=== PATIENT | male | born 1960 | race Caucasian/White ===

== ENCOUNTER 2021-11-18 06:17 | Emergency (ER) | payer MEDICAID ==
[~2021-11-18] VITALS: Ht 185.4 cm; Wt 84.0 kg
[2021-11-18 08:52] LABS: WHITE BLOOD COUNT 4.1 X10'3 (4.5-11.0)
[2021-11-18 08:54] LABS: HEMATOCRIT 34.1 % (42.0-52.0); HEMOGLOBIN 11.6 g/dl (14.0-17.9); MEAN CORPUSCULAR HEMOGLOBIN 34.5 PG (27.0-31.0); MEAN CORPUSCULAR HGB CONC 34.2 g/dL (33.0-36.5); MEAN CORPUSCULAR VOLUME 100.9 FL (78-98); MEAN PLATELET VOLUME 7.2 FL (7.4-10.4); PLATELET COUNT 151 X10'3 (140-440); RED BLOOD COUNT 3.38 X10'6 (4.70-6.10); RED CELL DISTRIBUTION WIDTH 14.2 % (11.5-14.5)
[2021-11-18 09:09] LABS: ALANINE AMINOTRANSFERASE 25 U/L (12-78); ALBUMIN 2.2 G/DL (3.4-5.0); ALBUMIN/GLOBULIN RATIO 0.5 (1.1-1.5); ALKALINE PHOSPHATASE 203 IU/L (46-116); ANION GAP 9 (8-16); ASPARTATE AMINO TRANSFERASE 49 U/L (10-37); BILIRUBIN,TOTAL 0.8 MG/DL (0.1-1.0); BLOOD UREA NITROGEN 17 MG/DL (7-18); BUN/CREATININE RATIO 14.2 (5.4-32.0); CHLORIDE 106 MMOL/L (99-107); ETHANOL < 0.010 GM/DL (0.0-0.010); GLUCOSE 104 MG/DL (70-104); MAGNESIUM 1.8 MG/DL (1.5-2.4); POTASSIUM 3.5 MMOL/L (3.5-5.1); SODIUM 135 MMOL/L (135-145); TOTAL CARBON DIOXIDE 19.7 MMOL/L (24-32); TOTAL PROTEIN 6.9 G/DL (6.4-8.2); eGFR 62 ML/MIN
[2021-11-18 09:12] LABS: APTT 31 SECONDS (22-32)
[2021-11-18 09:19] LABS: CALCIUM 8.3 MG/DL (8.5-10.1)
[2021-11-18 09:20] LABS: LIPASE < 50 U/L (73-393)
[2021-11-18 09:43] LABS: ANISOCYTOSIS FEW; PLATELET ESTIMATE NORMAL; TOTAL CELLS COUNTED 100
[2021-11-18 11:06] LABS: CLARITY,URINE CLOUDY (Clear); COLOR,URINE YELLOW (Yellow); GLUCOSE, URINE NEGATIVE (Neg); KETONES,URINE NEGATIVE (Neg); LEUKOCYTE ESTERASE ,URINE NEGATIVE (Neg); NITRITES, URINE NEGATIVE (Neg); OCCULT BLOOD,URINE NEGATIVE (Neg); PROTEIN,URINE TRACE mg/dl (Neg); UROBILINOGEN,URINE 0.2 E.U/dL (0.2-1.0)
[2021-11-18 11:12] LABS: URINE AMPHETAMINE SCREEN NEGATIVE (Neg); URINE BARBITUATE SCREEN NEGATIVE (Neg); URINE BENZODIAZEPINES SCREEN NEGATIVE (Neg); URINE CANNABINOID SCREEN NEGATIVE (Neg); URINE COCAINE SCREEN NEGATIVE (Neg); URINE METHADONE SCREEN NEGATIVE (Neg); URINE OPIATE SCREEN POSITIVE (Neg); URINE PHENCYCLIDINE SCREEN NEGATIVE (Neg)
[2021-11-18 11:21] LABS: UA COLLECTION TYPE CLN CATCH MIDSTREAM
[2021-11-18 11:26] LABS: CAL OXALATE CRYSTALS 4+ /HPF (NEGATIVE)
[2021-11-18 11:28] LABS: SQUAMOUS EPITHELIAL CELL,UR FEW /LPF (FEW); WBC,URINE 0-4 /HPF (0-4)
[2021-11-18 11:29] LABS: BACTERIA,URINE FEW /HPF (Neg); RBC,URINE 0-2 /HPF (0-2)
[2021-11-18] MEDS ORDERED: iohexol 300mg/ml 100ml inj. ONE (11:55)
[2021-11-18] MEDS ORDERED: LIDOcaine 1% W/epiNEPHrine 1:200,000 10ml vial IJ ONE (14:50)
[2021-11-18] MEDS ORDERED: morphine 4 MG/ML inj SYRINge IV ONE ×2 (15:50→16:45)
[2021-11-18] MEDS ORDERED: albumin (human) 25% 100 ML IV solution IV ONE (16:10)
[2021-11-18] MEDS ORDERED: SPIR25TA5 PO (16:17)
[2021-11-18] MEDS ORDERED: HYDR-3965 PO (16:22)
[2021-11-18 18:18] VITALS: BP 94/67
[2021-11-19 10:23] LABS: HBSAG SCREEN Negative (Negative); HEP A AB, IGM Negative (Negative); HEPATITIS C ANTIBODY <0.1 s/co ratio (0.0-0.9)
== END 2021-11-18 18:20 | disposition home or self-care (01) ==
LOC: ER 06:19
DX: K74.60 Unspecified cirrhosis of liver (principal); R18.8 Other ascites; F17.200 Nicotine dependence, unspecified, uncomplicated; Z72.89 Other problems related to lifestyle; Z79.899 Other long term (current) drug therapy
CPT/HCPCS: 36415; 49083; 74177; 80053; 80074; 80305; 80320; 81001; 82140; 83690; 83735; 85007; 85025; 85610; 85730; 96365; 96375; 96376; 99285; J2270; P9047; Q9967

== ENCOUNTER 2021-11-26 08:02 | Emergency (ER) | payer MEDICAID ==
[~2021-11-26] VITALS: Ht 188 cm; Wt 84.0 kg
[~2021-11-26 08:02] MED LIST: HYDR-3965 PO; SPIR25TA5 PO
[2021-11-26] MEDS ORDERED: morphine 4 MG/ML inj SYRINge IV ONE ×2 (09:10→10:40)
[2021-11-26 09:17] LABS: BASOPHILS % (AUTO) 1.3 % (0-1); EOSINOPHILS # (AUTO) 0.1 X10'3 (0-0.9); EOSINOPHILS % (AUTO) 3.4 % (0-6); HEMATOCRIT 30.4 % (42.0-52.0); HEMOGLOBIN 10.5 g/dl (14.0-17.9); LYMPHOCYTES # (AUTO) 0.9 X10'3 (1.1-4.8); LYMPHOCYTES % (AUTO) 23.7 % (21-51); MEAN CORPUSCULAR HEMOGLOBIN 34.3 PG (27.0-31.0); MEAN CORPUSCULAR HGB CONC 34.4 g/dL (33.0-36.5); MEAN CORPUSCULAR VOLUME 99.6 FL (78-98); MEAN PLATELET VOLUME 7.6 FL (7.4-10.4); MONOCYTES # (AUTO) 0.5 X10'3 (0-0.9); MONOCYTES % (AUTO) 12.3 % (2-12); NEUTROPHILS # (AUTO) 2.3 X10'3 (1.8-7.7); NEUTROPHILS % (AUTO) 59.3 % (42-75); PLATELET COUNT 108 X10'3 (140-440); RED BLOOD COUNT 3.05 X10'6 (4.70-6.10); RED CELL DISTRIBUTION WIDTH 14.1 % (11.5-14.5); WHITE BLOOD COUNT 3.9 X10'3 (4.5-11.0)
[2021-11-26 09:18] LABS: CLARITY,URINE CLEAR (Clear); COLOR,URINE YELLOW (Yellow); GLUCOSE, URINE NEGATIVE (Neg); KETONES,URINE NEGATIVE (Neg); LEUKOCYTE ESTERASE ,URINE NEGATIVE (Neg); NITRITES, URINE NEGATIVE (Neg); OCCULT BLOOD,URINE NEGATIVE (Neg); PROTEIN,URINE NEGATIVE (Neg); UROBILINOGEN,URINE 0.2 E.U/dL (0.2-1.0)
[2021-11-26 09:22] LABS: UA COLLECTION TYPE CLN CATCH MIDSTREAM
[2021-11-26 09:35] LABS: POTASSIUM 3.6 MMOL/L (3.5-5.1); SODIUM 139 MMOL/L (135-145)
[2021-11-26 09:36] LABS: ALANINE AMINOTRANSFERASE 21 U/L (12-78); ALBUMIN 2.1 G/DL (3.4-5.0); ALBUMIN/GLOBULIN RATIO 0.5 (1.1-1.5); ALKALINE PHOSPHATASE 181 IU/L (46-116); ANION GAP 9 (8-16); ASPARTATE AMINO TRANSFERASE 39 U/L (10-37); BILIRUBIN,TOTAL 0.6 MG/DL (0.1-1.0); BLOOD UREA NITROGEN 22 MG/DL (7-18); BUN/CREATININE RATIO 16.1 (5.4-32.0); CALCIUM 7.8 MG/DL (8.5-10.1); CHLORIDE 108 MMOL/L (99-107); CREATININE 1.37 MG/DL (0.60-1.10); GLUCOSE 114 MG/DL (70-104); LIPASE < 50 U/L (73-393); TOTAL CARBON DIOXIDE 22.4 MMOL/L (24-32); TOTAL PROTEIN 6.4 G/DL (6.4-8.2); eGFR 53 ML/MIN
--- NOTE | 2021-11-26 09:45 | NUR ---
provider at bedside.
--- NOTE | 2021-11-26 10:36 | NUR ---
paracentesis completed. three liters of fluid removed from pt, catheter discontinued fully intact. pt tolerated procedure well.
[2021-11-26 10:39] VITALS: BP 113/79
[2021-11-26] MEDS ORDERED: FURO-150 PO ×2 (10:43)
[2021-11-26] MEDS ORDERED: HYDR-3965 PO ×2 (10:43)
[2021-11-26] MEDS ORDERED: SPIR25TA PO ×2 (10:43)
[2021-11-26] MEDS ORDERED: POTA10CA44 PO ×2 (10:43)
--- NOTE | 2021-11-26 10:54 | NUR ---
PER PT, SISTER WILL PICK HIM UP. INSTRUCTED PT TO NOT DRIVE S/P MORPHINE ADMIN. VERBALIZED UNDERSTANDING.
== END 2021-11-26 10:54 | disposition home or self-care (01) ==
LOC: ER 08:03
DX: K70.31 Alcoholic cirrhosis of liver with ascites (principal); Z72.89 Other problems related to lifestyle; Z79.899 Other long term (current) drug therapy
CPT/HCPCS: 36415; 49082; 80053; 81003; 83690; 85025; 85610; 96374; 96376; 99285; J2270; 49083; 76705; 96375; 99284

== ENCOUNTER 2021-12-02 07:30 | Day surgery (SDC) | payer MEDICAID ==
[~2021-12-02] VITALS: Ht 188 cm; Wt 80.3 kg
[~2021-12-02 07:30] MED LIST changes: +FURO-150 PO; +LIDOcaine 1% 30ml preserv. free vial SQ STA; +POTA10CA44 PO; +SPIR25TA PO
[2021-12-02 07:41] VITALS: BP 103/76
[2021-12-02] MEDS ORDERED: albumin 25% 100mL bottle x 1 IV PRN (07:55)
[2021-12-02] MEDS ORDERED: FURO40TA4 PO (08:00)
[2021-12-02] MEDS ORDERED: POTA-192 PO (08:01)
[2021-12-02] MEDS ORDERED: SPIR25TA5 PO (08:02)
[2021-12-02 08:15] VITALS: BP 108/73
[2021-12-02 08:30] VITALS: BP 116/77
[2021-12-02 08:45] VITALS: BP 104/76
[2021-12-02 08:50] VITALS: BP 106/74
[2021-12-02 09:00] VITALS: BP 104/71
== END 2021-12-02 09:00 | disposition home or self-care (01) ==
LOC: SSTAY O 07:30
PROVIDERS: ATTEND Preventive Medicine Aerospace Medicine
DX: K70.31 Alcoholic cirrhosis of liver with ascites (principal); F17.210 Nicotine dependence, cigarettes, uncomplicated; Z98.890 Other specified postprocedural states; Z79.899 Other long term (current) drug therapy
CPT/HCPCS: 49083; J3490

== ENCOUNTER 2021-12-08 08:04 | Emergency (ER) | payer MEDICAID ==
[~2021-12-08] VITALS: Ht 188 cm; Wt 84.1 kg
[~2021-12-08 08:04] MED LIST changes: -FURO-150 PO; +FURO40TA4 PO; -HYDR-3965 PO; -LIDOcaine 1% 30ml preserv. free vial SQ STA; +POTA-192 PO; -POTA10CA44 PO; -SPIR25TA PO
[2021-12-08] MEDS ORDERED: LIDOcaine 1% w/EPI 1:100,000 30ml vial (MDV) ONE (09:00)
[2021-12-08] MEDS ORDERED: albumin (human) 25% 100 ML IV solution IV ONE (10:15)
[2021-12-08 11:40] VITALS: BP 110/72
== END 2021-12-08 11:40 | disposition home or self-care (01) ==
LOC: ER 08:04
DX: R18.8 Other ascites (principal); R14.0 Abdominal distension (gaseous); Z72.89 Other problems related to lifestyle; Z88.8 Allergy status to other drugs, medicaments and biological substances
CPT/HCPCS: 49083; 96365; 99285; J3490; P9047

== ENCOUNTER 2021-12-13 10:13 | Emergency (ER) | payer MEDICAID ==
[~2021-12-13] VITALS: Ht 188 cm; Wt 84.1 kg
[2021-12-13] MEDS ORDERED: ondansetron 4mg rapidly disintigrating tab PO ONE (14:40)
[2021-12-13] MEDS ORDERED: oxyCODONE IR 5mg (immed. release) tablet PO ONE (14:40)
[2021-12-13] MEDS ORDERED: OXYC-658 PO (14:44)
[2021-12-13 15:15] VITALS: BP 115/79
== END 2021-12-13 15:17 | disposition home or self-care (01) ==
LOC: ER 10:14
DX: T85.638A Leakage of other specified internal prosthetic devices, implants and grafts, initial encounter (principal); R18.8 Other ascites; Z72.89 Other problems related to lifestyle; Z79.899 Other long term (current) drug therapy; Y84.4 Aspiration of fluid as the cause of abnormal reaction of the patient, or of later complication, without mention of misadventure at the time of the procedure; Y92.89 Other specified places as the place of occurrence of the external cause
CPT/HCPCS: 99284

== ENCOUNTER 2021-12-17 07:38 | Day surgery (SDC) | payer MEDICAID ==
[~2021-12-17] VITALS: Ht 188 cm; Wt 79.9 kg
[~2021-12-17 07:38] MED LIST changes: +LIDOcaine 1% 30ml preserv. free vial IJ STA; +LIDOcaine 1%/PF 5ML 10 MG/ML VIAL IJ ONE; +OXYC-658 PO
[2021-12-17 08:45] VITALS: BP 107/71
[2021-12-17] MEDS ORDERED: albumin 25% 100mL bottle x 1 IV PRN (09:00)
[2021-12-17 09:05] VITALS: BP 109/76
[2021-12-17 09:20] VITALS: BP 119/78
[2021-12-17 09:35] VITALS: BP 106/71
[2021-12-17 09:45] VITALS: BP 105/72
[2021-12-17 10:00] VITALS: BP 111/60
== END 2021-12-17 10:00 | disposition home or self-care (01) ==
LOC: SSTAY O 07:38
PROVIDERS: ATTEND Preventive Medicine Aerospace Medicine
DX: K70.31 Alcoholic cirrhosis of liver with ascites (principal); F17.210 Nicotine dependence, cigarettes, uncomplicated; Z98.890 Other specified postprocedural states; Z72.89 Other problems related to lifestyle
CPT/HCPCS: 49083; J3490

== ENCOUNTER 2022-03-14 12:37 | Emergency (ER) | payer MEDICAID ==
[~2022-03-14] VITALS: Ht 185.4 cm; Wt 79.5 kg
[~2022-03-14 12:37] MED LIST changes: -LIDOcaine 1% 30ml preserv. free vial IJ STA; -LIDOcaine 1%/PF 5ML 10 MG/ML VIAL IJ ONE; -OXYC-658 PO
[2022-03-14] MEDS ORDERED: levetiracetam inj 1,000 MG in normal saline 100ml IV soln 90 ML IV STA (14:57)
[2022-03-14] MEDS ORDERED: normal saline 1000ML IV soln IVB ONE (15:00)
[2022-03-14] MEDS ORDERED: levetiracetam inj 1,000 MG in normal saline 100ml IV soln 100 ML IV ONE (15:30)
[2022-03-14 15:32] LABS: BASOPHILS % (AUTO) 1.2 % (0-1); EOSINOPHILS % (AUTO) 0.9 % (0-6); HEMATOCRIT 30.8 % (42.0-52.0); HEMOGLOBIN 10.3 g/dl (14.0-17.9); LYMPHOCYTES # (AUTO) 0.7 X10'3 (1.1-4.8); MEAN CORPUSCULAR HEMOGLOBIN 30.7 PG (27.0-31.0); MEAN CORPUSCULAR HGB CONC 33.5 g/dL (33.0-36.5); MEAN CORPUSCULAR VOLUME 91.8 FL (78-98); MEAN PLATELET VOLUME 7.4 FL (7.4-10.4); MONOCYTES # (AUTO) 0.4 X10'3 (0-0.9); MONOCYTES % (AUTO) 11.4 % (2-12); NEUTROPHILS # (AUTO) 2.4 X10'3 (1.8-7.7); NEUTROPHILS % (AUTO) 67.5 % (42-75); PLATELET COUNT 152 X10'3 (140-440); RED BLOOD COUNT 3.35 X10'6 (4.70-6.10); RED CELL DISTRIBUTION WIDTH 15.9 % (11.5-14.5); WHITE BLOOD COUNT 3.5 X10'3 (4.5-11.0)
[2022-03-14 15:51] LABS: ALANINE AMINOTRANSFERASE 52 U/L (12-78); ALBUMIN 2.5 G/DL (3.4-5.0); ALBUMIN/GLOBULIN RATIO 0.5 (1.1-1.5); ALKALINE PHOSPHATASE 224 IU/L (46-116); ANION GAP 7 (8-16); ASPARTATE AMINO TRANSFERASE 83 U/L (10-37); BILIRUBIN,TOTAL 0.8 MG/DL (0.1-1.0); BLOOD UREA NITROGEN 19 MG/DL (7-18); BUN/CREATININE RATIO 17.4 (5.4-32.0); CALCIUM 8.1 MG/DL (8.5-10.1); CHLORIDE 102 MMOL/L (99-107); CREATININE 1.09 MG/DL (0.60-1.10); ETHANOL < 0.010 GM/DL (0.0-0.010); GLUCOSE 101 MG/DL (70-104); POTASSIUM 3.6 MMOL/L (3.5-5.1); SODIUM 131 MMOL/L (135-145); TOTAL CARBON DIOXIDE 22.2 MMOL/L (24-32); TOTAL PROTEIN 7.2 G/DL (6.4-8.2); eGFR 69 ML/MIN
[2022-03-14 16:27] LABS: CLARITY,URINE CLEAR (Clear); COLOR,URINE YELLOW (Yellow); GLUCOSE, URINE NEGATIVE (Neg); KETONES,URINE NEGATIVE (Neg); LEUKOCYTE ESTERASE ,URINE NEGATIVE (Neg); NITRITES, URINE NEGATIVE (Neg); OCCULT BLOOD,URINE NEGATIVE (Neg); PROTEIN,URINE NEGATIVE (Neg); UROBILINOGEN,URINE 0.2 E.U/dL (0.2-1.0)
[2022-03-14 16:36] LABS: UA COLLECTION TYPE URINAL
[2022-03-14 17:05] LABS: URINE AMPHETAMINE SCREEN NEGATIVE (Neg); URINE BARBITUATE SCREEN NEGATIVE (Neg); URINE BENZODIAZEPINES SCREEN NEGATIVE (Neg); URINE CANNABINOID SCREEN NEGATIVE (Neg); URINE COCAINE SCREEN NEGATIVE (Neg); URINE METHADONE SCREEN NEGATIVE (Neg); URINE OPIATE SCREEN NEGATIVE (Neg); URINE PHENCYCLIDINE SCREEN NEGATIVE (Neg)
[2022-03-14 17:40] VITALS: BP 118/83
[2022-03-14] MEDS ORDERED: LEVE10002 PO ×2 (18:24)
== END 2022-03-14 17:45 | disposition home or self-care (01) ==
LOC: ER 12:37
DX: S00.83XA Contusion of other part of head, initial encounter (principal); S60.417A Abrasion of left little finger, initial encounter; S00.81XA Abrasion of other part of head, initial encounter; S09.90XA Unspecified injury of head, initial encounter; M25.512 Pain in left shoulder; R56.9 Unspecified convulsions; Z72.89 Other problems related to lifestyle; Z79.899 Other long term (current) drug therapy; W10.8XXA Fall (on) (from) other stairs and steps, initial encounter; Y93.89 Activity, other specified; Y92.89 Other specified places as the place of occurrence of the external cause; Y99.8 Other external cause status
CPT/HCPCS: 36415; 70450; 71045; 73030; 80053; 80305; 80320; 81003; 85025; 93005; 96365; 99285; J1953; J3490; J7030

== ENCOUNTER 2022-03-16 16:07 | Emergency (ER) | payer MEDICAID ==
[~2022-03-16] VITALS: Ht 185.4 cm; Wt 79.0 kg
[~2022-03-16 16:07] MED LIST changes: +LEVE10002 PO
--- NOTE | 2022-03-16 17:28 | NUR ---
PT TO CT
--- NOTE | 2022-03-16 17:33 | NUR ---
PT BACK FROM CT
[2022-03-16] MEDS ORDERED: LEVE10002 PO (18:07)
[2022-03-16] MEDS ORDERED: ACET325T66 PO (18:07)
[2022-03-16 18:11] VITALS: BP 126/85
== END 2022-03-16 18:27 | disposition home or self-care (01) ==
LOC: ER 16:08
DX: S00.81XA Abrasion of other part of head, initial encounter (principal); R42 Dizziness and giddiness; M25.512 Pain in left shoulder; M54.2 Cervicalgia; H53.8 Other visual disturbances; Z86.69 Personal history of other diseases of the nervous system and sense organs; Z72.89 Other problems related to lifestyle; Z60.2 Problems related to living alone; Z79.899 Other long term (current) drug therapy; W10.9XXA Fall (on) (from) unspecified stairs and steps, initial encounter; Y93.89 Activity, other specified; Y92.89 Other specified places as the place of occurrence of the external cause; Y99.8 Other external cause status
CPT/HCPCS: 70486; 99284

== ENCOUNTER 2022-04-13 07:31 | Day surgery (SDC) | payer MEDICAID ==
[2022-04-13] VITALS (10 sets, daily range): BP systolic 122–147; BP diastolic 74–91
[~2022-04-13] VITALS: Ht 188 cm; Wt 76.7 kg
[~2022-04-13 07:31] MED LIST changes: +ACET325T66 PO
[2022-04-13] MEDS ORDERED: albumin 25% 100mL bottle x 1 IV PRN (07:50)
[2022-04-13] MEDS ORDERED: TRAZ-251 PO (07:52)
[2022-04-13] MEDS ORDERED: LIDOcaine 1%/PF 5ML 10 MG/ML VIAL SQ ONE (08:00)
== END 2022-04-13 11:15 | disposition home or self-care (01) ==
LOC: SSTAY O 07:31
PROVIDERS: ATTEND Radiology Diagnostic Radiology
DX: K70.31 Alcoholic cirrhosis of liver with ascites (principal); Z98.890 Other specified postprocedural states; F17.210 Nicotine dependence, cigarettes, uncomplicated; Z72.89 Other problems related to lifestyle; Z79.899 Other long term (current) drug therapy
CPT/HCPCS: 49083; J3490; P9047; Z7610; A6258; A6449

== ENCOUNTER 2022-12-29 09:43 | Emergency (ER) | payer MEDICAID ==
[~2022-12-29] VITALS: Ht 188 cm; Wt 81.8 kg
[~2022-12-29 09:43] MED LIST changes: -ACET325T66 PO; -LEVE10002 PO; +MAGN64TA8 PO; +POTA-206 PO; +TRAZ-251 PO
[2022-12-29 10:01] LABS: BASOPHILS # (AUTO) 0.1 X10'3 (0-0.2); BASOPHILS % (AUTO) 1.4 % (0-1); EOSINOPHILS # (AUTO) 0.1 X10'3 (0-0.9); EOSINOPHILS % (AUTO) 2.7 % (0-6); HEMATOCRIT 32.1 % (42.0-52.0); HEMOGLOBIN 10.8 g/dl (14.0-17.9); LYMPHOCYTES # (AUTO) 0.6 X10'3 (1.1-4.8); LYMPHOCYTES % (AUTO) 14.1 % (21-51); MEAN CORPUSCULAR HEMOGLOBIN 32.5 PG (27.0-31.0); MEAN CORPUSCULAR HGB CONC 33.5 g/dL (33.0-36.5); MEAN CORPUSCULAR VOLUME 97.1 FL (78-98); MEAN PLATELET VOLUME 7.6 FL (7.4-10.4); MONOCYTES # (AUTO) 0.6 X10'3 (0-0.9); MONOCYTES % (AUTO) 13.7 % (2-12); NEUTROPHILS # (AUTO) 2.8 X10'3 (1.8-7.7); NEUTROPHILS % (AUTO) 68.1 % (42-75); PLATELET COUNT 74 X10'3 (140-440); RED BLOOD COUNT 3.31 X10'6 (4.70-6.10); RED CELL DISTRIBUTION WIDTH 16.7 % (11.5-14.5); WHITE BLOOD COUNT 4.1 X10'3 (4.5-11.0)
[2022-12-29 10:19] LABS: ALANINE AMINOTRANSFERASE 24 U/L (12-78); ALBUMIN 3.2 G/DL (3.4-5.0); ALBUMIN/GLOBULIN RATIO 0.7 (1.1-1.5); ALKALINE PHOSPHATASE 313 IU/L (46-116); ANION GAP 6 (8-16); ASPARTATE AMINO TRANSFERASE 31 U/L (10-37); BILIRUBIN,TOTAL 0.6 MG/DL (0.1-1.0); BLOOD UREA NITROGEN 14 MG/DL (7-18); BUN/CREATININE RATIO 14.7 (5.4-32.0); CALCIUM 8.8 MG/DL (8.5-10.1); CHLORIDE 104 MMOL/L (99-107); CREATININE 0.95 MG/DL (0.60-1.10); GLUCOSE 106 MG/DL (70-104); POTASSIUM 3.9 MMOL/L (3.5-5.1); SODIUM 135 MMOL/L (135-145); TOTAL CARBON DIOXIDE 24.7 MMOL/L (24-32); TOTAL PROTEIN 7.7 G/DL (6.4-8.2); eGFR 81 ML/MIN
[2022-12-29 10:40] LABS: ANISOCYTOSIS 1+; PLATELET ESTIMATE DECREASED; POLYCHROMASIA FEW; SCHISTOCYTES FEW
[2022-12-29] MEDS ORDERED: dexamethasone 4mg tablet PO ONE (11:15)
[2022-12-29] MEDS ORDERED: HYDROcodone/acetaminophen 10/325mg tab PO ONE (11:15)
[2022-12-29] MEDS ORDERED: naproxen 500mg tablet PO ONE (11:15)
[2022-12-29] MEDS ORDERED: DEC4T PO (11:15)
[2022-12-29] MEDS ORDERED: AZIT-83 PO (11:15)
[2022-12-29] MEDS ORDERED: azithromycin 250mg tablet PO ONE (11:15)
[2022-12-29 11:47] VITALS: BP 121/69
== END 2022-12-29 11:50 | disposition home or self-care (01) ==
LOC: ER 09:43
DX: J40 Bronchitis, not specified as acute or chronic (principal); R07.81 Pleurodynia; Z87.81 Personal history of (healed) traumatic fracture; Z79.899 Other long term (current) drug therapy; Z79.1 Long term (current) use of non-steroidal anti-inflammatories (NSAID)
CPT/HCPCS: 36415; 71045; 73030; 80053; 83880; 84484; 85008; 85025; 93005; 99285

== ENCOUNTER 2023-04-18 07:08 | Inpatient (IN) | payer MEDICAID ==
[2023-04-14 12:40] LABS: BASOPHILS % (AUTO) 0.7 % (0-1); EOSINOPHILS # (AUTO) 0.1 X10'3 (0-0.9); EOSINOPHILS % (AUTO) 1.3 % (0-6); LYMPHOCYTES # (AUTO) 0.7 X10'3 (1.1-4.8); LYMPHOCYTES % (AUTO) 17.8 % (21-51); MEAN CORPUSCULAR HEMOGLOBIN 28.6 PG (27.0-31.0); MEAN CORPUSCULAR HGB CONC 33.4 g/dL (33.0-36.5); MEAN CORPUSCULAR VOLUME 85.7 FL (78-98); MEAN PLATELET VOLUME 7.7 FL (7.4-10.4); MONOCYTES # (AUTO) 0.5 X10'3 (0-0.9); MONOCYTES % (AUTO) 11.3 % (2-12); NEUTROPHILS # (AUTO) 2.8 X10'3 (1.8-7.7); NEUTROPHILS % (AUTO) 68.9 % (42-75); PRE OP HEMATOCRIT 37.6 % (42.0-52.0); PRE OP HEMOGLOBIN 12.6 g/dL (14.0-17.9); RED BLOOD COUNT 4.39 X10'6 (4.70-6.10); RED CELL DISTRIBUTION WIDTH 16.2 % (11.5-14.5)
[2023-04-14 12:59] LABS: PRE OP INR 1.1 INR
[2023-04-14 13:01] LABS: ALBUMIN 3.9 G/DL (3.4-5.0); ALBUMIN/GLOBULIN RATIO 0.9 (1.1-1.5); ALKALINE PHOSPHATASE 247 IU/L (46-116); CALCIUM 9.3 MG/DL (8.5-10.1); PRE OP ALT 70 U/L (30-65); PRE OP AST 89 U/L (10-37); PRE OP BILIRUB, TOTAL 1.2 MG/DL (0.0-1.0); PRE OP PLATELET COUNT 76 X10'3 (140-440); TOTAL CARBON DIOXIDE 22.7 MMOL/L (24-32); TOTAL PROTEIN 8.3 G/DL (6.4-8.2)
[2023-04-14 13:06] LABS: BLOOD UREA NITROGEN 18 MG/DL (7-18); BUN/CREATININE RATIO 14.9 (10.0-20.0); CHLORIDE 98 MMOL/L (99-107); CREATININE 1.21 MG/DL (0.60-1.10); PRE OP ANION GAP 14 (8-16); PRE OP GLUCOSE 105 MG/DL (70-104); PRE OP SODIUM 135 MMOL/L (135-145); eGFR 61 ML/MIN
[2023-04-14 13:08] LABS: PRE OP POTASSIUM 3.1 MMOL/L (3.4-5.1)
[~2023-04-18] VITALS: Ht 188 cm; Wt 79.2 kg
[2023-04-18] VITALS (24 sets, daily range): BP systolic 101–128; BP diastolic 42–82
[~2023-04-18 07:08] MED LIST changes: -FURO40TA4 PO; +LEVE10002 PO; -MAGN64TA8 PO; -POTA-192 PO; -POTA-206 PO; -SPIR25TA5 PO; -TRAZ-251 PO; +albuterol 2.5 MG/3 ML nebule NEB ONE; +cefazolin 2gm/D5W 100mL 100 ML IV ONE; +famotidine 20mg tablet PO ONE; +ringers solution, lacted 1,000 ML IV SCH; +tranexamic acid 650mg tablet PO ONE; +vancomycin 1,500 MG in NS 300ml IV soln IV ONE
[2023-04-18 09:41] LABS: ISTAT CREATININE 0.9 mg/dL (0.8-1.3); ISTAT HGB 13.6 g/dl (14.0-17.9); ISTAT IONIZED CALCIUM 1.32 mmol/L (1.03-1.32); ISTAT K 3.3 mmol/L (3.5-5.1); POC BUN/CREATININE RATIO 33.3 (5.4-32.0)
--- NOTE | 2023-04-18 11:00 | NUR ---
Pt was not able to shower x 5 per protocol as pt is currently homeles. MD aware. Pt did arrive to hospital early and was able to shower w/ CHG per protocol.
[2023-04-18] MEDS ORDERED: POTA10CA85 PO (12:27)
[2023-04-18] MEDS ORDERED: FURO20TA4 PO (12:27)
[2023-04-18] MEDS ORDERED: sevoflurane 250ml liquid IH ONE (12:27)
[2023-04-18] MEDS ORDERED: FLO0.4C PO (12:27)
[2023-04-18] MEDS ORDERED: midazolam 1 mg/ML 2ml injection ONE (12:32)
[2023-04-18] MEDS ORDERED: fentaNYL/PF 50MCG/1 ML 2ML syringe ONE (12:32)
[2023-04-18] MEDS ORDERED: meperidine/PF 25mg/ml syringe IV PRN ×3 (12:40)
[2023-04-18] MEDS ORDERED: proCHLORperazine 10 MG/2 ml inj IV PRN (12:40)
[2023-04-18] MEDS ORDERED: labetalol 20mg/4ml (5mg/ml) syringe IV PRN (12:40)
[2023-04-18] MEDS ORDERED: morphine 4 MG/ML inj SYRINge IV PRN (12:40)
[2023-04-18] MEDS ORDERED: morphine 2 MG/ML inj. syringe IV PRN (12:40)
[2023-04-18] MEDS ORDERED: ringers solution, lacted 1,000 ML IV SCH (12:40)
[2023-04-18] MEDS ORDERED: hydrALAZINE 20mg/ml inj. IV PRN (12:40)
[2023-04-18] MEDS ORDERED: acetaminophen 1,000mg/100ml IV 100 ML IV PRN (12:40)
[2023-04-18] MEDS ORDERED: ondansetron/PF 4mg/2ml inj IV PRN ×2 (12:40→15:00)
[2023-04-18] MEDS ORDERED: ROPIVAcaine 0.5% (5mg/ml) 30ml vial ONE (13:08)
[2023-04-18] MEDS ORDERED: rocuronium 10mg/ml inj IV ONE (13:08)
[2023-04-18] MEDS ORDERED: propofol inj 20 ML IV ONE (13:08)
[2023-04-18] MEDS ORDERED: LIDOcaine 2% (20mg/ml) 5ml vial ONE (13:08)
[2023-04-18] MEDS ORDERED: dexamethasone sod phosphate 4mg/ml inj. ONE (13:11)
[2023-04-18] MEDS ORDERED: ondansetron/PF 4mg/2ml inj ONE (13:12)
[2023-04-18] MEDS ORDERED: ROPIVAcaine 0.5% (5mg/ml) 30ml vial IJ ONE (13:48)
--- NOTE | 2023-04-18 14:59 | NUR ---
Received from OR via HOSPITAL BED, accompanied by Anesthesiologist DR MARTIN and report given by Anesthesiologist. PT IS GROGGY BUT RESPONDS EASILY TO VERBAL STIMULI AND FOLLOWS COMMANDS. PT PLACED ON BEDSIDE MONITOR, VSS. PT IS IN SR WITH RATE IN 70'S. PT IS RECEIVING 8L O2 TO MASK AND TOLERATING WELL WITH O2 SAT >96%, WILL TITRATE DOWN PT TOLERATES. PT HAS 20G PIV TO RT HAND WITH LR INFUSING ORDERED. PT HAS DRSG TO LEFT SHOULDER THAT IS CDI, SHOULDER WRAP IN PLACE WITH POWDER ICE-PACK AND SLING IN PLACE. PT HAS PALPABLE BILAT RADIAL PULSES. PT DENIES PAIN AT THIS TIME. WILL CONTINUE TO ASSESS
[2023-04-18] MEDS ORDERED: magnesium hydroxide 30ml (MOM) UD suspension PO PRN (15:00)
[2023-04-18] MEDS ORDERED: acetaminophen 325mg tablet PO PRN (15:00)
[2023-04-18] MEDS ORDERED: oxyCODONE IR 5mg (immed. release) tablet PO PRN ×2 (15:00)
[2023-04-18] MEDS ORDERED: HYDROmorphone 1 mg/ml syringe IV PRN (15:00)
[2023-04-18] MEDS ORDERED: diphenhydrAMINE 25mg capsule PO PRN ×2 (15:00)
[2023-04-18] MEDS ORDERED: naloxone 0.4 mg/ml inj IV PRN (15:00)
[2023-04-18] MEDS ORDERED: bisacodyl 10mg suppository rectal RC PRN (15:00)
[2023-04-18] MEDS ORDERED: HYDROmorphone inj. 0.5 MG/0.5 ML DISP.SYRIN IV PRN (15:00)
[2023-04-18] MEDS: ROPIVAcaine 0.2%/PF PUMP/bolus 545 ML INTERSCALE SCH (15:09)
[2023-04-18] MEDS ORDERED: ceFAZolin/D5W- 1GM premix 50 ML IV SCH (16:00)
--- NOTE | 2023-04-18 17:11 | NUR ---
Patient in room PAS IN 900. I have received report from tenzin LAMAR and had the opportunity to ask questions and assume patient care.
--- NOTE | 2023-04-18 17:29 | NUR ---
PATIENT HAS MET ALL CRITERIA FOR TRANSFER TO THE ORTHO FLOOR. VSS. DRESSINGS INTACT. BED LOW, CALL LIGHT PRESENT AND 2 RAILS UP. NURSE PRESENT TO ACCEPT CARE OF PATIENT AND REPORT HAS BEEN CALLED TO NURSE KENNEDY. ALL QUESTIONS ANSWERED TO ACCEPTING NURSE
--- NOTE | 2023-04-18 18:00 | NUR ---
I have reviewed and agree with interventions, assessments, and documentation by Tamara Montero LVN.
--- NOTE | 2023-04-18 19:14 | NUR ---
Problems reprioritized. Patient report given, questions answered & plan of care reviewed with Fiordaliza LAMAR.
[2023-04-18] MEDS: potassium chloride 10mEq ER tablet PO SCH (19:39)
[2023-04-18] MEDS: levetiracetam 250mg tablet PO SCH (19:40)
[2023-04-18] MEDS: potassium cl 20mEq in 1/2 NS 1,000 ML IV SCH ×2 (19:41→23:00)
[2023-04-18] MEDS: tamsulosin 0.4mg capsule PO SCH (19:43)
[2023-04-18] MEDS: HYDROcodone/acetaminophen 10/325mg tab PO PRN (19:48)
[2023-04-18] MEDS: acetaminophen 325mg tablet PO SCH (20:00)
[2023-04-18] MEDS: furosemide 20MG tablet PO SCH (20:00)
[2023-04-18] MEDS ORDERED: vancomycin/NS 1 GM ADD-VANTAGE 250 ML IV SCH (20:00)
[2023-04-18] MEDS: sennosides 8.6mg tablet PO SCH (21:00)
[2023-04-18] MEDS: ceFAZolin/D5W- 1GM premix 50 ML IV SCH (23:20)
[2023-04-19] MEDS: HYDROcodone/acetaminophen 10/325mg tab PO PRN ×6 (00:39→23:29)
[2023-04-19 02:00] VITALS: BP 119/81
[2023-04-19] MEDS: acetaminophen 325mg tablet PO SCH ×4 (02:00→19:14)
[2023-04-19] MEDS: potassium cl 20mEq in 1/2 NS 1,000 ML IV SCH ×3 (05:11→23:00)
[2023-04-19] MEDS: ceFAZolin/D5W- 1GM premix 50 ML IV SCH (05:34)
[2023-04-19 06:00] VITALS: BP 111/72
--- NOTE | 2023-04-19 06:10 | NUR ---
Patient in room ORTHO 4012. I have received report from Fiordaliza RN and had the opportunity to ask questions and assume patient care.
[2023-04-19 06:37] LABS: BASOPHILS % (AUTO) 0.5 % (0-1); EOSINOPHILS % (AUTO) 0.4 % (0-6); HEMATOCRIT 28.5 % (42.0-52.0); HEMOGLOBIN 9.5 g/dl (14.0-17.9); LYMPHOCYTES % (AUTO) 13.8 % (21-51); MEAN CORPUSCULAR HEMOGLOBIN 29.2 PG (27.0-31.0); MEAN CORPUSCULAR HGB CONC 33.2 g/dL (33.0-36.5); MEAN CORPUSCULAR VOLUME 87.9 FL (78-98); MEAN PLATELET VOLUME 8.1 FL (7.4-10.4); MONOCYTES # (AUTO) 0.6 X10'3 (0-0.9); MONOCYTES % (AUTO) 8.7 % (2-12); NEUTROPHILS # (AUTO) 5.6 X10'3 (1.8-7.7); NEUTROPHILS % (AUTO) 76.6 % (42-75); PLATELET COUNT 89 X10'3 (140-440); RED BLOOD COUNT 3.25 X10'6 (4.70-6.10); RED CELL DISTRIBUTION WIDTH 16.3 % (11.5-14.5); WHITE BLOOD COUNT 7.4 X10'3 (4.5-11.0)
[2023-04-19 06:54] LABS: ANION GAP 11 (8-16); CHLORIDE 104 MMOL/L (99-107); POTASSIUM 4.5 MMOL/L (3.5-5.1); SODIUM 133 MMOL/L (135-145); TOTAL CARBON DIOXIDE 17.8 MMOL/L (24-32)
[2023-04-19] MEDS: potassium chloride 10mEq ER tablet PO SCH ×2 (07:23→19:11)
[2023-04-19] MEDS: aspirin 325mg tablet PO SCH (07:23)
[2023-04-19] MEDS: furosemide 20MG tablet PO SCH ×2 (07:23→19:12)
[2023-04-19] MEDS: levetiracetam 250mg tablet PO SCH ×2 (07:23→19:11)
--- NOTE | 2023-04-19 10:27 | NUR ---
Joint surgery consult: Pt s/p L shoulder surgery this admit per EMR. Pt seen by DAKOTA for written/verbal high protein diet ed w/ RD contact information provided. DAKOTA encouraged pt to contact dietitian's office if further nutrition questions/concerns. Addendum: 04/19/23 at [address] Amended: Links added.
[2023-04-19] MEDS ORDERED: ketorolac tromethamine 15mg/ml inj. IV ONE (12:27)
[2023-04-19] MEDS: ketorolac tromethamine 15mg/ml inj. IV SCH ×2 (14:00→20:22)
[2023-04-19] MEDS: ROPIVAcaine 0.2% (10 MG/5 ML) BOLUS INJECTION INTERSCALE PRN (17:12)
[2023-04-19 18:00] VITALS: BP 109/71
--- NOTE | 2023-04-19 18:00 | NUR ---
I have reviewed and agree with interventions, assessments, and documentation by Sherrill Goncalves LVN
--- NOTE | 2023-04-19 18:39 | NUR ---
Patient in room ORTHO 4012. I have received report from Sherrill RDZ and had the opportunity to ask questions and assume patient care.
[2023-04-19] MEDS: sennosides 8.6mg tablet PO SCH (20:20)
[2023-04-19] MEDS: tamsulosin 0.4mg capsule PO SCH (20:22)
--- NOTE | 2023-04-19 21:31 | NUR ---
focused assessment. pt left shoulder surgery. ice pack and sling and shoulder wrap in place. no drainage. toradol given. noted onQ at 14. educated bolus - tolerated well. pt calm, getting along with roommate better. full sensation intact and movement intact left arm. eating full dinner. pulses intact.
[2023-04-19 22:00] VITALS: BP 141/84
[2023-04-20] MEDS: ketorolac tromethamine 15mg/ml inj. IV SCH ×3 (02:00→07:43)
[2023-04-20] MEDS: acetaminophen 325mg tablet PO SCH ×3 (02:00→14:00)
[2023-04-20] MEDS: HYDROcodone/acetaminophen 10/325mg tab PO PRN ×5 (05:14→22:44)
[2023-04-20 06:00] VITALS: BP 141/81
--- NOTE | 2023-04-20 06:57 | NUR ---
Patient in room ORTHO 4012. I have received report from KENDELL Jones and had the opportunity to ask questions and assume patient care.
[2023-04-20] MEDS: potassium cl 20mEq in 1/2 NS 1,000 ML IV SCH (07:00)
[2023-04-20 07:03] LABS: BASOPHILS % (AUTO) 0.8 % (0-1); EOSINOPHILS # (AUTO) 0.2 X10'3 (0-0.9); EOSINOPHILS % (AUTO) 6.2 % (0-6); HEMATOCRIT 25.3 % (42.0-52.0); HEMOGLOBIN 8.4 g/dl (14.0-17.9); LYMPHOCYTES # (AUTO) 0.6 X10'3 (1.1-4.8); LYMPHOCYTES % (AUTO) 20.4 % (21-51); MEAN CORPUSCULAR HEMOGLOBIN 29.3 PG (27.0-31.0); MEAN CORPUSCULAR HGB CONC 33.4 g/dL (33.0-36.5); MEAN CORPUSCULAR VOLUME 87.8 FL (78-98); MEAN PLATELET VOLUME 8.2 FL (7.4-10.4); MONOCYTES # (AUTO) 0.5 X10'3 (0-0.9); MONOCYTES % (AUTO) 15.6 % (2-12); NEUTROPHILS # (AUTO) 1.7 X10'3 (1.8-7.7); PLATELET COUNT 62 X10'3 (140-440); RED BLOOD COUNT 2.88 X10'6 (4.70-6.10); RED CELL DISTRIBUTION WIDTH 16.2 % (11.5-14.5); WHITE BLOOD COUNT 2.9 X10'3 (4.5-11.0)
[2023-04-20] MEDS: aspirin 325mg tablet PO SCH (07:43)
[2023-04-20] MEDS: furosemide 20MG tablet PO SCH ×2 (07:44→20:00)
[2023-04-20] MEDS: levetiracetam 250mg tablet PO SCH ×2 (07:44→20:21)
[2023-04-20] MEDS: potassium chloride 10mEq ER tablet PO SCH ×2 (07:44→20:21)
[2023-04-20 08:56] LABS: TOTAL CELLS COUNTED 100
[2023-04-20 08:57] LABS: ANISOCYTOSIS 1+; PLATELET ESTIMATE DECREASED
[2023-04-20 10:00] VITALS: BP 123/73
[2023-04-20] MEDS: ROPIVAcaine 0.2%/PF PUMP/bolus 545 ML INTERSCALE SCH (13:00)
[2023-04-20] MEDS ORDERED: acetaminophen 325mg tablet PO PRN (15:00)
[2023-04-20 18:00] VITALS: BP 137/80
--- NOTE | 2023-04-20 18:00 | NUR ---
Patient in room ORTHO 4012. I have received report from Ashley LAMAR and had the opportunity to ask questions and assume patient care.
--- NOTE | 2023-04-20 18:29 | NUR ---
Problems reprioritized. Patient report given, questions answered & plan of care reviewed with BRIANDA Retana.
[2023-04-20] MEDS: ROPIVAcaine 0.2% (10 MG/5 ML) BOLUS INJECTION INTERSCALE PRN (20:20)
[2023-04-20] MEDS: sennosides 8.6mg tablet PO SCH (20:20)
[2023-04-20] MEDS: tamsulosin 0.4mg capsule PO SCH (20:21)
[2023-04-20 22:00] VITALS: BP 150/87
[2023-04-21] MEDS: HYDROcodone/acetaminophen 10/325mg tab PO PRN ×5 (03:12→20:22)
[2023-04-21 06:00] VITALS: BP 131/85
--- NOTE | 2023-04-21 06:30 | NUR ---
Patient in room ORTHO 4012. I have received report from BRIANDA Retana and had the opportunity to ask questions and assume patient care.
[2023-04-21 07:16] LABS: BASOPHILS % (AUTO) 1.2 % (0-1); EOSINOPHILS # (AUTO) 0.2 X10'3 (0-0.9); EOSINOPHILS % (AUTO) 6.2 % (0-6); HEMATOCRIT 25.5 % (42.0-52.0); HEMOGLOBIN 8.4 g/dl (14.0-17.9); LYMPHOCYTES # (AUTO) 0.6 X10'3 (1.1-4.8); LYMPHOCYTES % (AUTO) 21.7 % (21-51); MEAN CORPUSCULAR HEMOGLOBIN 28.7 PG (27.0-31.0); MEAN CORPUSCULAR HGB CONC 32.8 g/dL (33.0-36.5); MEAN CORPUSCULAR VOLUME 87.3 FL (78-98); MONOCYTES # (AUTO) 0.5 X10'3 (0-0.9); MONOCYTES % (AUTO) 16.4 % (2-12); NEUTROPHILS # (AUTO) 1.6 X10'3 (1.8-7.7); NEUTROPHILS % (AUTO) 54.5 % (42-75); PLATELET COUNT 70 X10'3 (140-440); RED BLOOD COUNT 2.92 X10'6 (4.70-6.10); RED CELL DISTRIBUTION WIDTH 16.6 % (11.5-14.5); WHITE BLOOD COUNT 2.9 X10'3 (4.5-11.0)
[2023-04-21] MEDS: furosemide 20MG tablet PO SCH ×2 (07:27→20:00)
[2023-04-21] MEDS: potassium chloride 10mEq ER tablet PO SCH ×2 (07:27→20:22)
[2023-04-21] MEDS: levetiracetam 250mg tablet PO SCH ×2 (07:27→20:20)
[2023-04-21] MEDS: aspirin 81mg, enteric-coated 1 TAB TABLET.DR PO SCH (07:29)
[2023-04-21 10:00] VITALS: BP 131/85
[2023-04-21 10:16] LABS: ANISOCYTOSIS 1+; PLATELET ESTIMATE DECREASED; TOTAL CELLS COUNTED 100
--- NOTE | 2023-04-21 14:53 | NUR ---
Dr Del Castillo aware case management is working on placement for patient. Per Dr Del Castillo they can try pathway to housing. Per Susi with case management there are 3 patients ahead of this patient for pathway to housing. Case Management and mental health social worker are putting in for partnership for post short term housing. Primary RN Staci jimenez
[2023-04-21 18:00] VITALS: BP 132/86
--- NOTE | 2023-04-21 18:00 | NUR ---
Pt refused lasix stating that it makes him have the urge to urinate to much in the middle of the night. Pt was advised of the risks and benefits of the medication
--- NOTE | 2023-04-21 18:00 | NUR ---
Patient in room ORTHO 4012. I have received report from Ashley LAMAR and had the opportunity to ask questions and assume patient care.
--- NOTE | 2023-04-21 18:38 | NUR ---
Problems reprioritized. Patient report given, questions answered & plan of care reviewed with BRIANDA Retana.
[2023-04-21] MEDS: sennosides 8.6mg tablet PO SCH (20:21)
[2023-04-21] MEDS: tamsulosin 0.4mg capsule PO SCH (20:22)
[2023-04-21 22:00] VITALS: BP 139/83
[2023-04-22] MEDS: HYDROcodone/acetaminophen 10/325mg tab PO PRN ×5 (01:05→19:13)
--- NOTE | 2023-04-22 04:15 | NUR ---
Pt has pulled out on-q. A bandaid was placed at the site and shoulder wrap was replaced
[2023-04-22 06:00] VITALS: BP 138/77
--- NOTE | 2023-04-22 06:07 | NUR ---
Problems reprioritized. Patient report given, questions answered & plan of care reviewed with Cande LAMAR.
--- NOTE | 2023-04-22 06:43 | NUR ---
Patient in room ORTHO 4012. I have received report from BRIANDA Retana and had the opportunity to ask questions and assume patient care.
[2023-04-22] MEDS: furosemide 20MG tablet PO SCH ×2 (08:21→19:13)
[2023-04-22] MEDS: aspirin 81mg, enteric-coated 1 TAB TABLET.DR PO SCH (08:21)
[2023-04-22] MEDS: potassium chloride 10mEq ER tablet PO SCH ×2 (08:21→20:05)
[2023-04-22] MEDS: levetiracetam 250mg tablet PO SCH ×2 (08:21→20:06)
[2023-04-22 10:00] VITALS: BP 116/75
[2023-04-22] MEDS: ROPIVAcaine 0.2%/PF PUMP/bolus 545 ML INTERSCALE SCH (13:00)
[2023-04-22 18:00] VITALS: BP 122/88
--- NOTE | 2023-04-22 18:00 | NUR ---
Patient in room ORTHO 4012. I have received report from Ashley LAMAR and had the opportunity to ask questions and assume patient care.
--- NOTE | 2023-04-22 18:37 | NUR ---
Problems reprioritized. Patient report given, questions answered & plan of care reviewed with BRIANDA Retana.
[2023-04-22] MEDS: sennosides 8.6mg tablet PO SCH (20:05)
[2023-04-22] MEDS: tamsulosin 0.4mg capsule PO SCH (20:05)
[2023-04-22 22:00] VITALS: BP 110/71
[2023-04-23] MEDS: HYDROcodone/acetaminophen 10/325mg tab PO PRN ×6 (00:42→22:19)
--- NOTE | 2023-04-23 06:24 | NUR ---
Patient in room ORTHO 4012. I have received report from BRIANDA Retana and had the opportunity to ask questions and assume patient care.
[2023-04-23] MEDS: furosemide 20MG tablet PO SCH ×2 (07:48→19:29)
[2023-04-23] MEDS: aspirin 81mg, enteric-coated 1 TAB TABLET.DR PO SCH (07:48)
[2023-04-23] MEDS: levetiracetam 250mg tablet PO SCH ×2 (07:48→19:29)
[2023-04-23] MEDS: potassium chloride 10mEq ER tablet PO SCH ×2 (07:49→19:29)
[2023-04-23 10:00] VITALS: BP 102/65
--- NOTE | 2023-04-23 11:41 | NUR ---
Initial: Pt s/p L shoulder surgery this admit per EMR; PO 100% avg regular diet meeting estimated needs. LBM 04/21 per EMR. No nutrition interventions at this time. Will continue to follow. Rec: 1. continue regular diet 2. routine bowel care 3. weekly wt Addendum: 04/23/23 at [address] Amended: Links added.
[2023-04-23 18:00] VITALS: BP 98/67
[2023-04-23] MEDS: sennosides 8.6mg tablet PO SCH (19:29)
[2023-04-23] MEDS: tamsulosin 0.4mg capsule PO SCH (19:29)
[2023-04-23 22:00] VITALS: BP 129/75
--- NOTE | 2023-04-23 22:00 | NUR ---
Agree with J Atkins CORPORATE FINANCIAL ANALYST assessment.
--- NOTE | 2023-04-24 00:19 | NUR ---
Problems reprioritized. Patient report given, questions answered & plan of care reviewed with BRIANDA Rojas.
[2023-04-24] MEDS: HYDROcodone/acetaminophen 10/325mg tab PO PRN ×4 (05:53→20:04)
[2023-04-24 06:00] VITALS: BP 117/73
--- NOTE | 2023-04-24 06:29 | NUR ---
Problems reprioritized. Received report from BRIANDA Rojas; questions answered & plan of care reviewed.
[2023-04-24] MEDS: furosemide 20MG tablet PO SCH ×2 (07:57→20:00)
[2023-04-24] MEDS: levetiracetam 250mg tablet PO SCH ×2 (07:57→20:03)
[2023-04-24] MEDS: aspirin 81mg, enteric-coated 1 TAB TABLET.DR PO SCH (07:57)
[2023-04-24] MEDS: potassium chloride 10mEq ER tablet PO SCH ×2 (07:57→20:05)
--- NOTE | 2023-04-24 09:39 | NUR ---
Problems reprioritized. Care plan reviewed. Following Skye RDZ. All IV medication completed by Vy LAMAR BSN. Agree with assessment, patient in no distress.
[2023-04-24 10:00] VITALS: BP 110/60
[2023-04-24] MEDS: ROPIVAcaine 0.2%/PF PUMP/bolus 545 ML INTERSCALE SCH (13:00)
--- NOTE | 2023-04-24 16:35 | NUR ---
Pt has an x-ray dont that appeared the shoulder was popped out of the socket on the left shoulder. Informed Dr. Hargrove and he is in review of the x-ray. Awaiting for new orders for Sx. Patient is in no distress at this time. Administered PO [place] 20 mg, and switching powder packs as needed.
[2023-04-24 18:00] VITALS: BP 159/84
--- NOTE | 2023-04-24 18:16 | NUR ---
Relayed plan of care w/ superintendent transportation nurse. NAD at this time.
--- NOTE | 2023-04-24 18:30 | NUR ---
Patient in room ORTHO 4012. I have received report from Skye RDZ and had the opportunity to ask questions and assume patient care.
[2023-04-24] MEDS: tamsulosin 0.4mg capsule PO SCH (20:05)
[2023-04-24] MEDS: sennosides 8.6mg tablet PO SCH (20:06)
[2023-04-24 22:00] VITALS: BP 125/64
[2023-04-25] MEDS: HYDROcodone/acetaminophen 10/325mg tab PO PRN ×6 (00:10→23:57)
[2023-04-25 06:00] VITALS: BP_SYST 104; BP_SYST 158; BP_DIAS 102; BP_DIAS 68
--- NOTE | 2023-04-25 06:20 | NUR ---
Patient report given to Denver RDZ
--- NOTE | 2023-04-25 06:34 | NUR ---
Patient in room ORTHO 4012. I have received report from BRIANDA Mckeon and had the opportunity to ask questions and assume patient care.
[2023-04-25] MEDS: levetiracetam 250mg tablet PO SCH ×2 (07:33→19:23)
[2023-04-25] MEDS: furosemide 20MG tablet PO SCH ×2 (07:33→19:30)
[2023-04-25] MEDS: aspirin 81mg, enteric-coated 1 TAB TABLET.DR PO SCH (07:33)
[2023-04-25] MEDS: potassium chloride 10mEq ER tablet PO SCH ×2 (07:33→19:23)
[2023-04-25 10:00] VITALS: BP 96/60
--- NOTE | 2023-04-25 15:23 | NUR ---
Problems reprioritized. Care plan reviewed. Following Denver RDZ. All IV medication completed by Vy LAMAR BSN.
[2023-04-25 18:00] VITALS: BP 108/68
--- NOTE | 2023-04-25 18:20 | NUR ---
Problems reprioritized. Patient report given, questions answered & plan of care reviewed with BRIANDA Mckeon.
--- NOTE | 2023-04-25 18:24 | NUR ---
Received report from Denver RDZ.
[2023-04-25] MEDS: tamsulosin 0.4mg capsule PO SCH (19:24)
[2023-04-25] MEDS: sennosides 8.6mg tablet PO SCH (19:24)
[2023-04-25 22:00] VITALS: BP 107/71
[2023-04-26] VITALS (20 sets, daily range): BP systolic 89–128; BP diastolic 54–74
[2023-04-26] MEDS: HYDROcodone/acetaminophen 10/325mg tab PO PRN ×2 (05:04→09:20)
--- NOTE | 2023-04-26 06:40 | NUR ---
Problems reprioritized. Patient report given, questions answered & plan of care reviewed with Skye RDZ.
[2023-04-26 06:42] LABS: BASOPHILS # (AUTO) 0.1 X10'3 (0-0.2); BASOPHILS % (AUTO) 1.7 % (0-1); EOSINOPHILS # (AUTO) 0.3 X10'3 (0-0.9); EOSINOPHILS % (AUTO) 9.5 % (0-6); LYMPHOCYTES # (AUTO) 0.8 X10'3 (1.1-4.8); MEAN CORPUSCULAR HEMOGLOBIN 28.9 PG (27.0-31.0); MEAN CORPUSCULAR HGB CONC 33.3 g/dL (33.0-36.5); MEAN CORPUSCULAR VOLUME 86.7 FL (78-98); MEAN PLATELET VOLUME 8.1 FL (7.4-10.4); MONOCYTES # (AUTO) 0.6 X10'3 (0-0.9); MONOCYTES % (AUTO) 17.2 % (2-12); NEUTROPHILS # (AUTO) 1.6 X10'3 (1.8-7.7); NEUTROPHILS % (AUTO) 47.6 % (42-75); PRE OP HEMATOCRIT 27.1 % (42.0-52.0); PRE OP PLATELET COUNT 133 X10'3 (140-440); RED BLOOD COUNT 3.12 X10'6 (4.70-6.10); RED CELL DISTRIBUTION WIDTH 16.4 % (11.5-14.5)
--- NOTE | 2023-04-26 06:47 | NUR ---
Received report from BRIANDA Mckeon. Patient checked on, no acute distress at this time. Call radhika w/ in reach, BLL, SRx2, non slip socks on.
[2023-04-26 07:02] LABS: ALANINE AMINOTRANSFERASE 31 U/L (12-78); ALBUMIN 2.9 G/DL (3.4-5.0); ALBUMIN/GLOBULIN RATIO 0.7 (1.1-1.5); ALKALINE PHOSPHATASE 221 IU/L (46-116); ANION GAP 8 (8-16); ASPARTATE AMINO TRANSFERASE 41 U/L (10-37); BILIRUBIN,TOTAL 0.6 MG/DL (0.1-1.0); BLOOD UREA NITROGEN 16 MG/DL (7-18); CALCIUM 8.5 MG/DL (8.5-10.1); CHLORIDE 100 MMOL/L (99-107); CREATININE 0.94 MG/DL (0.60-1.10); GLUCOSE 91 MG/DL (70-104); POTASSIUM 4.4 MMOL/L (3.5-5.1); SODIUM 133 MMOL/L (135-145); TOTAL CARBON DIOXIDE 24.7 MMOL/L (24-32); TOTAL PROTEIN 6.9 G/DL (6.4-8.2); eGFR 82 ML/MIN
--- NOTE | 2023-04-26 07:30 | NUR ---
Relayed pt's lab result to Dr. Day in re: critical lab result of HGB: 9.0 and HCT 27.1. Pt NAD. Ordered for the patient to have 2 units of blood at this time.
[2023-04-26] MEDS: aspirin 81mg, enteric-coated 1 TAB TABLET.DR PO SCH (08:00)
[2023-04-26] MEDS: potassium chloride 10mEq ER tablet PO SCH ×2 (08:34→21:01)
[2023-04-26] MEDS: levetiracetam 250mg tablet PO SCH ×2 (08:34→21:01)
[2023-04-26] MEDS: furosemide 20MG tablet PO SCH ×2 (08:34→20:00)
[2023-04-26] MEDS ORDERED: ROPIVAcaine 0.5% (5mg/ml) 30ml vial ONE ×2 (12:23→14:07)
--- NOTE | 2023-04-26 12:36 | NUR ---
Per Dr Del Castillo hold off on giving blood for now. Per Dr Del Castillo they may give blood during or after surgery.
--- NOTE | 2023-04-26 13:15 | NUR ---
Gave report to the OR nurse (team) of the patients current status/ plan of care. Patient is stable at this time and has remained NPO since lastnight. Held ASA this a.m due to going to Sx. VS have been WNL all shift so far. BS remained at 95 mg/Dl. Transferred to OR via gurney.
[2023-04-26] MEDS ORDERED: ketorolac trometh. 30mg/ml inj. ONE (14:03)
[2023-04-26] MEDS ORDERED: tranexamic acid 650mg tablet PO ONE (14:05)
[2023-04-26] MEDS ORDERED: albumin (Human) 5% 250ml 250 ML IV ONE ×3 (14:06→14:45)
[2023-04-26] MEDS ORDERED: propofol inj 20 ML IV ONE (14:06)
[2023-04-26] MEDS ORDERED: LIDOcaine 2% (20mg/ml) 5ml vial ONE (14:06)
[2023-04-26] MEDS ORDERED: ondansetron/PF 4mg/2ml inj ONE (14:08)
[2023-04-26] MEDS ORDERED: sevoflurane 250ml liquid IH ONE (14:08)
[2023-04-26] MEDS ORDERED: PHENYLephrine 10mg/ml 5ml injection IV ONE (14:08)
[2023-04-26] MEDS ORDERED: dexamethasone sod phosphate 4mg/ml inj. ONE (14:08)
[2023-04-26] MEDS ORDERED: ceFAZolin 1000mg inj ONE ×2 (14:54)
[2023-04-26] MEDS ORDERED: vancomycin 1,000mg inj ONE (15:06)
[2023-04-26] MEDS ORDERED: fentaNYL/PF 50MCG/1 ML 2ML syringe IV PRN ×2 (15:15)
[2023-04-26] MEDS ORDERED: hydrALAZINE 20mg/ml inj. IV PRN (15:15)
[2023-04-26] MEDS ORDERED: ringers solution, lacted 1,000 ML IV SCH (15:15)
[2023-04-26] MEDS ORDERED: ondansetron/PF 4mg/2ml inj IV PRN (15:15)
[2023-04-26] MEDS ORDERED: morphine 2 MG/ML inj. syringe IV PRN (15:15)
[2023-04-26] MEDS ORDERED: labetalol 20mg/4ml (5mg/ml) syringe IV PRN (15:15)
[2023-04-26] MEDS ORDERED: ROPIVAcaine 0.2% (10 MG/5 ML) BOLUS INJECTION INTERSCALE PRN (15:15)
[2023-04-26] MEDS ORDERED: morphine 4 MG/ML inj SYRINge IV PRN (15:15)
[2023-04-26] MEDS ORDERED: fentaNYL/PF 50MCG/1 ML 2ML syringe ONE ×2 (16:06→16:20)
[2023-04-26] MEDS ORDERED: naloxone 0.4 mg/ml inj IV PRN (16:20)
[2023-04-26] MEDS: potassium cl 20mEq in 1/2 NS 1,000 ML IV SCH (16:20)
--- NOTE | 2023-04-26 16:35 | NUR ---
Received from OR via BED, accompanied by Anesthesiologist and report given by Anesthesiologist. PATIENT WAKING UP, NO S/S OF PAIN, V/S WNL, SCD ON, 20G TO LUE, drsg to LEFT shoulder-CDI with SLIG AND ONQ TO BE STARTED SOON. ISTAT TO BE DRAWN
[2023-04-26 16:48] LABS: ISTAT CREATININE 0.9 mg/dL (0.8-1.3); ISTAT HGB 8.5 g/dl (14.0-17.9); ISTAT IONIZED CALCIUM 1.17 mmol/L (1.03-1.32); ISTAT K 4.7 mmol/L (3.5-5.1); POC BUN/CREATININE RATIO 17.8 (5.4-32.0)
--- NOTE | 2023-04-26 17:01 | NUR ---
NITO DEL ANGEL PER DR CHAVEZ AFTER RESULTS BEING REVIEWED
[2023-04-26] MEDS: ROPIVAcaine 0.2%/PF PUMP/bolus 545 ML INTERSCALE SCH (17:07)
--- NOTE | 2023-04-26 17:35 | NUR ---
PATIENT A&OX4, DENIES PAIN, V/S WNL, SCD ON, 20G TO LUE, drsg to LEFT shoulder-CDI with SLING AND ONQ ON. PATIENT TAKEN TO ROOM WITH ALL BELONGINGS AND HOOKED UP TO MONITORS IN ROOM AND GIVEN CALL LIGHT, REPORT GIVEN TO RN WHO HAS TAKEN OVER PATIENT CARE.
--- NOTE | 2023-04-26 17:40 | NUR ---
Received pt back from PACU, no acute distress at this time. VS Post op set up, SCD's on, dressing CDI. Powder pack on, on intact going at 2 mL. Will CTM
--- NOTE | 2023-04-26 18:18 | NUR ---
Problems reprioritized. Patient report given, questions answered & plan of care reviewed with BRIANDA Mckeon.
--- NOTE | 2023-04-26 18:25 | NUR ---
Patient in room ORTHO 4012. I have received report from Skye RDZ and had the opportunity to ask questions and assume patient care.
[2023-04-26] MEDS ORDERED: vancomycin/NS 1 GM ADD-VANTAGE 250 ML IV SCH (20:00)
[2023-04-26] MEDS: sennosides 8.6mg tablet PO SCH (21:03)
[2023-04-26] MEDS: tamsulosin 0.4mg capsule PO SCH (21:03)
[2023-04-27] VITALS (11 sets, daily range): BP systolic 97–195; BP diastolic 62–93
[2023-04-27] MEDS: potassium cl 20mEq in 1/2 NS 1,000 ML IV SCH ×2 (00:20→02:50)
[2023-04-27] MEDS: ceFAZolin/D5W- 1GM premix 50 ML IV SCH ×2 (00:30→07:42)
[2023-04-27] MEDS: HYDROcodone/acetaminophen 10/325mg tab PO PRN ×5 (02:50→20:20)
[2023-04-27 05:54] LABS: BASOPHILS % (AUTO) 0.6 % (0-1); EOSINOPHILS % (AUTO) 0.1 % (0-6); HEMOGLOBIN 7.5 g/dl (14.0-17.9); LYMPHOCYTES # (AUTO) 0.8 X10'3 (1.1-4.8); LYMPHOCYTES % (AUTO) 14.9 % (21-51); MEAN CORPUSCULAR HEMOGLOBIN 28.6 PG (27.0-31.0); MEAN CORPUSCULAR HGB CONC 32.6 g/dL (33.0-36.5); MEAN CORPUSCULAR VOLUME 87.7 FL (78-98); MEAN PLATELET VOLUME 7.7 FL (7.4-10.4); MONOCYTES # (AUTO) 0.7 X10'3 (0-0.9); NEUTROPHILS # (AUTO) 3.6 X10'3 (1.8-7.7); NEUTROPHILS % (AUTO) 70.4 % (42-75); PLATELET COUNT 126 X10'3 (140-440); RED BLOOD COUNT 2.63 X10'6 (4.70-6.10); RED CELL DISTRIBUTION WIDTH 16.3 % (11.5-14.5); WHITE BLOOD COUNT 5.1 X10'3 (4.5-11.0)
[2023-04-27 06:04] LABS: ANION GAP 8 (8-16); CHLORIDE 102 MMOL/L (99-107); POTASSIUM 4.7 MMOL/L (3.5-5.1); SODIUM 132 MMOL/L (135-145)
--- NOTE | 2023-04-27 06:40 | NUR ---
Problems reprioritized. Patient report given, questions answered & plan of care reviewed with Lima LAMAR.
[2023-04-27] MEDS: potassium chloride 10mEq ER tablet PO SCH ×2 (07:43→20:15)
[2023-04-27] MEDS: levetiracetam 250mg tablet PO SCH ×2 (07:43→20:34)
[2023-04-27] MEDS: aspirin 81mg, enteric-coated 1 TAB TABLET.DR PO SCH (07:45)
[2023-04-27] MEDS: furosemide 20MG tablet PO SCH ×2 (07:48→20:00)
[2023-04-27] MEDS: normal saline 1000ml 1,000 ML IV SCH (11:45)
--- NOTE | 2023-04-27 18:42 | NUR ---
Problems reprioritized. Patient report given, questions answered & plan of care reviewed with amish morgan.
--- NOTE | 2023-04-27 18:46 | NUR ---
Patient in room ORTHO 4012. I have received report from BRIANDA Amato and had the opportunity to ask questions and assume patient care.
[2023-04-27] MEDS ORDERED: levetiracetam 250mg tablet PO SCH (20:00)
[2023-04-27] MEDS: sennosides 8.6mg tablet PO SCH (20:15)
[2023-04-27] MEDS: tamsulosin 0.4mg capsule PO SCH (20:15)
--- NOTE | 2023-04-27 21:19 | NUR ---
Pt refused benadryl for sleep this isauro, stating he didn't need it.
[2023-04-28] MEDS: HYDROcodone/acetaminophen 10/325mg tab PO PRN ×2 (00:43→04:40)
[2023-04-28 06:22] LABS: BASOPHILS # (AUTO) 0.1 X10'3 (0-0.2); BASOPHILS % (AUTO) 1.7 % (0-1); EOSINOPHILS # (AUTO) 0.2 X10'3 (0-0.9); EOSINOPHILS % (AUTO) 4.8 % (0-6); HEMATOCRIT 27.4 % (42.0-52.0); HEMOGLOBIN 9.1 g/dl (14.0-17.9); LYMPHOCYTES # (AUTO) 0.7 X10'3 (1.1-4.8); LYMPHOCYTES % (AUTO) 19.4 % (21-51); MEAN CORPUSCULAR HEMOGLOBIN 28.7 PG (27.0-31.0); MEAN CORPUSCULAR HGB CONC 33.1 g/dL (33.0-36.5); MEAN CORPUSCULAR VOLUME 86.7 FL (78-98); MEAN PLATELET VOLUME 7.5 FL (7.4-10.4); MONOCYTES # (AUTO) 0.5 X10'3 (0-0.9); MONOCYTES % (AUTO) 12.9 % (2-12); NEUTROPHILS # (AUTO) 2.2 X10'3 (1.8-7.7); NEUTROPHILS % (AUTO) 61.2 % (42-75); PLATELET COUNT 130 X10'3 (140-440); RED BLOOD COUNT 3.16 X10'6 (4.70-6.10); RED CELL DISTRIBUTION WIDTH 16.1 % (11.5-14.5); WHITE BLOOD COUNT 3.6 X10'3 (4.5-11.0)
[2023-04-28 06:23] VITALS: BP 125/80
--- NOTE | 2023-04-28 06:29 | NUR ---
Problems reprioritized. Patient report given, questions answered & plan of care reviewed with BRIANDA Amato.
--- NOTE | 2023-04-28 06:41 | NUR ---
Patient in room ORTHO 4012. I have received report from amish morgan and had the opportunity to ask questions and assume patient care.
[2023-04-28] MEDS: potassium chloride 10mEq ER tablet PO SCH ×2 (07:38→20:31)
[2023-04-28] MEDS: levetiracetam 250mg tablet PO SCH ×2 (07:38→20:30)
[2023-04-28] MEDS: furosemide 20MG tablet PO SCH ×2 (07:38→20:00)
[2023-04-28] MEDS: aspirin 81mg, enteric-coated 1 TAB TABLET.DR PO SCH (07:40)
[2023-04-28 10:00] VITALS: BP 90/60
[2023-04-28] MEDS: oxyCODONE IR 5mg (immed. release) tablet PO PRN ×4 (10:14→22:34)
[2023-04-28] MEDS: ketorolac trometh. 30mg/ml inj. IV PRN ×2 (13:25→21:30)
[2023-04-28] MEDS ORDERED: ketorolac trometh. 30mg/ml inj. IV SCH (14:00)
[2023-04-28] MEDS: ROPIVAcaine 0.2%/PF PUMP/bolus 545 ML INTERSCALE SCH (17:22)
[2023-04-28 18:00] VITALS: BP 120/81
--- NOTE | 2023-04-28 18:26 | NUR ---
Patient in room ORTHO 4012. I have received report from amish morgan and had the opportunity to ask questions and assume patient care. Addendum: 04/28/23 at 1836 by Lavern Amos RN disregard above note. Problems reprioritized. Patient report given, questions answered & plan of care reviewed with amish morgan.
--- NOTE | 2023-04-28 19:00 | NUR ---
Educated pt on use of IS w/ pt's return demonstration and 1500ml obtained. Pt states he is using it 5-10 times/ hour during waking hours. Also educated pt on pain medication and concerns for constipation, as well as on why he is taking potassium w/ lasix. Pt refused his lasix this isauro and would like to have it changed to AM.
[2023-04-28] MEDS: tamsulosin 0.4mg capsule PO SCH (20:32)
[2023-04-28] MEDS: sennosides 8.6mg tablet PO SCH (20:34)
[2023-04-28 22:00] VITALS: BP 119/81
[2023-04-29] MEDS: ketorolac trometh. 30mg/ml inj. IV PRN ×4 (01:39→22:16)
--- NOTE | 2023-04-29 01:47 | NUR ---
Toradol 30mg (1ml) given IVP at 2034, scanned, but accidentally didn't save the scan. BRIANDA Casiano aware.
[2023-04-29] MEDS: normal saline 1000ml 1,000 ML IV SCH (03:34)
[2023-04-29 06:00] VITALS: BP 127/80
--- NOTE | 2023-04-29 06:10 | NUR ---
Patient in room ORTHO 4012. I have received report from Stephenie LAMAR and had the opportunity to ask questions and assume patient care.
[2023-04-29 06:14] LABS: BASOPHILS # (AUTO) 0.1 X10'3 (0-0.2); BASOPHILS % (AUTO) 1.9 % (0-1); EOSINOPHILS # (AUTO) 0.3 X10'3 (0-0.9); EOSINOPHILS % (AUTO) 6.9 % (0-6); HEMATOCRIT 26.8 % (42.0-52.0); LYMPHOCYTES # (AUTO) 0.9 X10'3 (1.1-4.8); LYMPHOCYTES % (AUTO) 23.2 % (21-51); MEAN CORPUSCULAR HEMOGLOBIN 28.8 PG (27.0-31.0); MEAN CORPUSCULAR HGB CONC 33.5 g/dL (33.0-36.5); MEAN CORPUSCULAR VOLUME 85.9 FL (78-98); MEAN PLATELET VOLUME 7.6 FL (7.4-10.4); MONOCYTES # (AUTO) 0.5 X10'3 (0-0.9); MONOCYTES % (AUTO) 12.9 % (2-12); NEUTROPHILS % (AUTO) 55.1 % (42-75); PLATELET COUNT 141 X10'3 (140-440); RED BLOOD COUNT 3.12 X10'6 (4.70-6.10); RED CELL DISTRIBUTION WIDTH 16.1 % (11.5-14.5); WHITE BLOOD COUNT 3.7 X10'3 (4.5-11.0)
--- NOTE | 2023-04-29 06:36 | NUR ---
Problems reprioritized. Patient report given, questions answered & plan of care reviewed with BRIANDA Lake . Addendum: 04/29/23 at 0637 by Charlene Hollins RN Report given to KENDELL Lake
--- NOTE | 2023-04-29 06:37 | NUR ---
Problems reprioritized. Patient report given, questions answered & plan of care reviewed with KENDELL Lake.
[2023-04-29] MEDS: levetiracetam 250mg tablet PO SCH ×2 (07:01→20:56)
[2023-04-29] MEDS: potassium chloride 10mEq ER tablet PO SCH ×2 (07:01→20:07)
[2023-04-29] MEDS: oxyCODONE IR 5mg (immed. release) tablet PO PRN ×4 (07:01→20:52)
[2023-04-29] MEDS: aspirin 81mg, enteric-coated 1 TAB TABLET.DR PO SCH (07:01)
[2023-04-29] MEDS: furosemide 20MG tablet PO SCH ×2 (07:01→20:07)
[2023-04-29 10:00] VITALS: BP 115/73
--- NOTE | 2023-04-29 15:59 | NUR ---
Spoke with Dr. Del Castillo and gave the okay to discontinue the IV fluids. He will be ordering a x-ray for tomorrow.
[2023-04-29 18:00] VITALS: BP 131/79
--- NOTE | 2023-04-29 18:35 | NUR ---
Patient in room ORTHO 4012. I have received report from KENDELL MARTÍNEZ and had the opportunity to ask questions and assume patient care.
--- NOTE | 2023-04-29 18:40 | NUR ---
Problems reprioritized. Patient report given, questions answered & plan of care reviewed with Iliana LAMAR.
[2023-04-29] MEDS: tamsulosin 0.4mg capsule PO SCH (20:07)
[2023-04-29] MEDS: sennosides 8.6mg tablet PO SCH (20:07)
[2023-04-29 22:00] VITALS: BP 131/91
[2023-04-30] MEDS: oxyCODONE IR 5mg (immed. release) tablet PO PRN ×4 (02:40→19:42)
[2023-04-30 06:00] VITALS: BP 134/83
--- NOTE | 2023-04-30 06:20 | NUR ---
Problems reprioritized. Patient report given, questions answered & plan of care reviewed with UZAIR.
[2023-04-30] MEDS: levetiracetam 250mg tablet PO SCH ×2 (08:31→19:43)
[2023-04-30] MEDS: furosemide 20MG tablet PO SCH ×2 (08:32→19:47)
[2023-04-30] MEDS: potassium chloride 10mEq ER tablet PO SCH ×2 (08:32→19:43)
[2023-04-30] MEDS: aspirin 81mg, enteric-coated 1 TAB TABLET.DR PO SCH (08:32)
[2023-04-30 10:00] VITALS: BP 105/78
[2023-04-30] MEDS: ketorolac trometh. 30mg/ml inj. IV PRN (10:45)
[2023-04-30 18:00] VITALS: BP 117/77
[2023-04-30] MEDS: tamsulosin 0.4mg capsule PO SCH (19:43)
[2023-04-30] MEDS: sennosides 8.6mg tablet PO SCH (19:43)
[2023-04-30 22:00] VITALS: BP 105/78
[2023-05-01] MEDS: oxyCODONE IR 5mg (immed. release) tablet PO PRN ×5 (01:00→21:17)
[2023-05-01 06:00] VITALS: BP 116/77
--- NOTE | 2023-05-01 06:05 | NUR ---
Patient in room ORTHO 4012. I have received report from Katarzyna LAMAR and had the opportunity to ask questions and assume patient care.
--- NOTE | 2023-05-01 06:38 | NUR ---
Problems reprioritized. Patient report given, questions answered & plan of care reviewed with KENDELL MARTÍNEZ.
[2023-05-01] MEDS: ketorolac trometh. 30mg/ml inj. IV PRN (07:02)
[2023-05-01] MEDS: potassium chloride 10mEq ER tablet PO SCH ×2 (08:15→21:17)
[2023-05-01] MEDS: aspirin 81mg, enteric-coated 1 TAB TABLET.DR PO SCH (08:15)
[2023-05-01] MEDS: furosemide 20MG tablet PO SCH ×2 (08:15→20:00)
[2023-05-01] MEDS: levetiracetam 250mg tablet PO SCH ×2 (08:16→21:17)
[2023-05-01 10:00] VITALS: BP 97/59
--- NOTE | 2023-05-01 11:30 | NUR ---
I have reviewed and agree with interventions, assessments, and documentation by Tamara Montero LVN.
--- NOTE | 2023-05-01 12:37 | NUR ---
report given to Kassie LAMAR
[2023-05-01 18:00] VITALS: BP 106/69
--- NOTE | 2023-05-01 18:36 | NUR ---
Patient in room ORTHO 4012. I have received report from BRIANDA HAM and had the opportunity to ask questions and assume patient care.
[2023-05-01] MEDS: sennosides 8.6mg tablet PO SCH (21:17)
[2023-05-01] MEDS: tamsulosin 0.4mg capsule PO SCH (21:17)
[2023-05-01 22:00] VITALS: BP 111/59
[2023-05-02] MEDS: oxyCODONE IR 5mg (immed. release) tablet PO PRN ×6 (01:28→22:15)
--- NOTE | 2023-05-02 07:09 | NUR ---
Patient in room ORTHO 4012. I have received report from Jasmin LAMAR and had the opportunity to ask questions and assume patient care.
[2023-05-02 07:28] VITALS: BP 95/64
[2023-05-02] MEDS: levetiracetam 250mg tablet PO SCH ×2 (08:42→22:16)
[2023-05-02] MEDS: potassium chloride 10mEq ER tablet PO SCH ×2 (08:42→22:17)
[2023-05-02] MEDS: furosemide 20MG tablet PO SCH ×2 (08:42→22:17)
[2023-05-02] MEDS: aspirin 81mg, enteric-coated 1 TAB TABLET.DR PO SCH (08:43)
[2023-05-02 10:00] VITALS: BP 108/64
--- NOTE | 2023-05-02 13:00 | NUR ---
Reassessment: Pt continues eating well on a regular diet, documented with 100% of all meals though down to 75% PO intake at two meals 05/01, still meeting estimated nutrient needs. LBM 05/01 per EMR. No nutrition intervention implemented at this time. Will continue to follow. Recommendations: 1. Continue regular diet 2. Routine bowel care 3. Weekly scaled wts Addendum: 05/02/23 at [address] Amended: Links added.
[2023-05-02 18:00] VITALS: BP 108/67
--- NOTE | 2023-05-02 18:00 | NUR ---
I have reviewed and agree with interventions, assessments, and documentation by Norma Ervin LVN.
[2023-05-02 22:00] VITALS: BP 96/59
[2023-05-02] MEDS: sennosides 8.6mg tablet PO SCH (22:16)
[2023-05-02] MEDS: tamsulosin 0.4mg capsule PO SCH (22:17)
[2023-05-03] MEDS: oxyCODONE IR 5mg (immed. release) tablet PO PRN ×2 (02:42→07:59)
[2023-05-03 06:00] VITALS: BP 116/68
--- NOTE | 2023-05-03 07:01 | NUR ---
Problems reprioritized. Patient report given, questions answered & plan of care reviewed with cathy Garcia.
[2023-05-03] MEDS: aspirin 81mg, enteric-coated 1 TAB TABLET.DR PO SCH (07:57)
[2023-05-03] MEDS: levetiracetam 250mg tablet PO SCH ×2 (07:57→20:57)
[2023-05-03] MEDS: potassium chloride 10mEq ER tablet PO SCH ×2 (07:58→20:57)
[2023-05-03] MEDS: furosemide 20MG tablet PO SCH ×2 (07:59→20:00)
[2023-05-03 10:00] VITALS: BP_SYST 79; BP_SYST 83; BP_DIAS 45; BP_DIAS 52
[2023-05-03 11:50] VITALS: BP 92/61
--- NOTE | 2023-05-03 11:59 | NUR ---
PA aware of hypotension. See new orders.
[2023-05-03] MEDS: HYDROcodone/acetaminophen 10/325mg tab PO PRN ×3 (14:17→23:24)
[2023-05-03] MEDS: sennosides 8.6mg tablet PO SCH (20:57)
[2023-05-03] MEDS: tamsulosin 0.4mg capsule PO SCH (20:58)
--- NOTE | 2023-05-03 23:50 | NUR ---
assess complete - patient WNL all systems. voiding in bathroom or using urinal. ambulates w/o difficulty. left arm in sling when OOB but takes out of sling when laying in bed "b/c it makes my arm cramp up to have it in the sling all the time." pt showed me correct motion of extension of elbow without abducting shoulder. encouraged IS use while watching TV. pulses intact, island dressing intact. full sensation noted.
--- NOTE | 2023-05-04 02:31 | NUR ---
ASSUMED CARE OF PT.
--- NOTE | 2023-05-04 02:31 | NUR ---
Patient in room ORTHO 4012. I have received report from KENDELL Sharp and had the opportunity to ask questions and assume patient care.
--- NOTE | 2023-05-04 03:02 | NUR ---
Problems reprioritized. Patient report given, questions answered & plan of care reviewed with Nicole LAMAR.
[2023-05-04] MEDS: HYDROcodone/acetaminophen 10/325mg tab PO PRN ×5 (06:15→23:10)
--- NOTE | 2023-05-04 06:19 | NUR ---
Problems reprioritized. Patient report given, questions answered & plan of care reviewed with KENDELL PEREZ.
--- NOTE | 2023-05-04 06:32 | NUR ---
I have received report from BRIANDA Logan, and had the opportunity to ask questions and assume patient care. Patient is in no acute distress at this time. Call garrido w/ in reach, bed locked/ lowest position, fluids present.
[2023-05-04] MEDS: levetiracetam 250mg tablet PO SCH ×2 (08:13→19:09)
[2023-05-04] MEDS: potassium chloride 10mEq ER tablet PO SCH ×2 (08:13→19:09)
[2023-05-04] MEDS: aspirin 81mg, enteric-coated 1 TAB TABLET.DR PO SCH (08:13)
[2023-05-04] MEDS: furosemide 20MG tablet PO SCH ×2 (08:22→19:09)
[2023-05-04 10:00] VITALS: BP 96/64
--- NOTE | 2023-05-04 12:42 | NUR ---
Saba HAIRSTON gave verbal order to dc IV
[2023-05-04 18:00] VITALS: BP 107/67
[2023-05-04] MEDS: sennosides 8.6mg tablet PO SCH (19:09)
[2023-05-04] MEDS: tamsulosin 0.4mg capsule PO SCH (19:09)
[2023-05-04 22:00] VITALS: BP 107/43
[2023-05-05] MEDS: HYDROcodone/acetaminophen 10/325mg tab PO PRN ×5 (04:12→23:32)
[2023-05-05 06:00] VITALS: BP 117/69
--- NOTE | 2023-05-05 06:05 | NUR ---
Patient in room ORTHO 4012. I have received report from Marcelino LAMAR and had the opportunity to ask questions and assume patient care.
[2023-05-05 07:36] LABS: BASOPHILS # (AUTO) 0.1 X10'3 (0-0.2); BASOPHILS % (AUTO) 1.9 % (0-1); EOSINOPHILS # (AUTO) 0.3 X10'3 (0-0.9); EOSINOPHILS % (AUTO) 10.2 % (0-6); HEMOGLOBIN 9.6 g/dl (14.0-17.9); LYMPHOCYTES # (AUTO) 0.8 X10'3 (1.1-4.8); LYMPHOCYTES % (AUTO) 25.2 % (21-51); MEAN CORPUSCULAR HEMOGLOBIN 28.7 PG (27.0-31.0); MEAN CORPUSCULAR HGB CONC 33.2 g/dL (33.0-36.5); MEAN CORPUSCULAR VOLUME 86.5 FL (78-98); MEAN PLATELET VOLUME 7.8 FL (7.4-10.4); MONOCYTES # (AUTO) 0.5 X10'3 (0-0.9); NEUTROPHILS # (AUTO) 1.4 X10'3 (1.8-7.7); NEUTROPHILS % (AUTO) 45.7 % (42-75); PLATELET COUNT 140 X10'3 (140-440); RED BLOOD COUNT 3.36 X10'6 (4.70-6.10); RED CELL DISTRIBUTION WIDTH 16.3 % (11.5-14.5); WHITE BLOOD COUNT 3.1 X10'3 (4.5-11.0)
[2023-05-05] MEDS: furosemide 20MG tablet PO SCH ×2 (07:41→19:48)
[2023-05-05] MEDS: potassium chloride 10mEq ER tablet PO SCH ×2 (07:41→19:48)
[2023-05-05] MEDS: levetiracetam 250mg tablet PO SCH ×2 (07:41→19:48)
[2023-05-05] MEDS: aspirin 81mg, enteric-coated 1 TAB TABLET.DR PO SCH (07:41)
[2023-05-05 08:02] LABS: ALANINE AMINOTRANSFERASE 33 U/L (12-78); ALBUMIN/GLOBULIN RATIO 0.7 (1.1-1.5); ALKALINE PHOSPHATASE 240 IU/L (46-116); ANION GAP 9 (8-16); ASPARTATE AMINO TRANSFERASE 39 U/L (10-37); BILIRUBIN,TOTAL 0.4 MG/DL (0.1-1.0); BLOOD UREA NITROGEN 21 MG/DL (7-18); BUN/CREATININE RATIO 20.4 (10.0-20.0); CHLORIDE 99 MMOL/L (99-107); CREATININE 1.03 MG/DL (0.60-1.10); GLUCOSE 88 MG/DL (70-104); POTASSIUM 4.2 MMOL/L (3.5-5.1); SODIUM 132 MMOL/L (135-145); TOTAL CARBON DIOXIDE 23.9 MMOL/L (24-32); TOTAL PROTEIN 7.2 G/DL (6.4-8.2); eGFR 73 ML/MIN
[2023-05-05 10:00] VITALS: BP 100/67
[2023-05-05 18:00] VITALS: BP 100/59
--- NOTE | 2023-05-05 18:15 | NUR ---
Patient in room ORTHO 4012. I have received report from KENDELL MARTÍNEZ and had the opportunity to ask questions and assume patient care.
--- NOTE | 2023-05-05 18:42 | NUR ---
Problems reprioritized. Patient report given, questions answered & plan of care reviewed with Iliana LAMAR.
[2023-05-05] MEDS: tamsulosin 0.4mg capsule PO SCH (20:32)
[2023-05-05] MEDS: sennosides 8.6mg tablet PO SCH (20:32)
[2023-05-05 22:00] VITALS: BP 106/70
[2023-05-06 06:00] VITALS: BP 91/59
--- NOTE | 2023-05-06 06:27 | NUR ---
I have received report from BRIANDA Escudero and had the opportunity to ask questions and assume patient care. Patient is in no acute distress at this time.
--- NOTE | 2023-05-06 06:30 | NUR ---
Problems reprioritized. Patient report given, questions answered & plan of care reviewed with ANA.
[2023-05-06] MEDS: levetiracetam 250mg tablet PO SCH ×2 (08:10→20:05)
[2023-05-06] MEDS: furosemide 20MG tablet PO SCH ×2 (08:11→20:07)
[2023-05-06] MEDS: HYDROcodone/acetaminophen 10/325mg tab PO PRN ×4 (08:11→20:50)
[2023-05-06] MEDS: aspirin 81mg, enteric-coated 1 TAB TABLET.DR PO SCH (08:11)
[2023-05-06] MEDS: potassium chloride 10mEq ER tablet PO SCH ×2 (08:11→20:05)
[2023-05-06 10:00] VITALS: BP 102/62
--- NOTE | 2023-05-06 18:07 | NUR ---
Problems reprioritized. Patient report given, questions answered & plan of care reviewed with No Galdamez RN. Patient has no acute distress at this time.
--- NOTE | 2023-05-06 18:20 | NUR ---
Patient in room ORTHO 4012. I have received report from KENDELL PEREZ and had the opportunity to ask questions and assume patient care.
[2023-05-06] MEDS: tamsulosin 0.4mg capsule PO SCH (20:50)
[2023-05-06] MEDS: sennosides 8.6mg tablet PO SCH (20:51)
[2023-05-07] MEDS: HYDROcodone/acetaminophen 10/325mg tab PO PRN ×5 (01:33→20:34)
[2023-05-07 06:00] VITALS: BP 105/67
--- NOTE | 2023-05-07 06:20 | NUR ---
Problems reprioritized. Patient report given, questions answered & plan of care reviewed with BRIANDA DICKERSON.
[2023-05-07] MEDS: potassium chloride 10mEq ER tablet PO SCH ×2 (08:06→19:34)
[2023-05-07] MEDS: furosemide 20MG tablet PO SCH ×2 (08:07→20:00)
[2023-05-07] MEDS: levetiracetam 250mg tablet PO SCH ×2 (08:07→19:35)
[2023-05-07] MEDS: aspirin 81mg, enteric-coated 1 TAB TABLET.DR PO SCH (08:07)
--- NOTE | 2023-05-07 09:45 | NUR ---
Patient in room ORTHO 4012. I have received report from Kimberlee fixed wing pilot and had the opportunity to ask questions and assume patient care.
[2023-05-07 10:00] VITALS: BP 97/63
--- NOTE | 2023-05-07 10:30 | NUR ---
Problems reprioritized. Patient report given, questions answered & plan of care reviewed with Melissa LAMAR.
--- NOTE | 2023-05-07 11:15 | NUR ---
Physical assessment charting done by Heather LAMARlaundry pricing clerk, agreed with findings.
[2023-05-07 18:00] VITALS: BP 99/63
--- NOTE | 2023-05-07 18:48 | NUR ---
Problems reprioritized. Patient report given, questions answered & plan of care reviewed with Fiordaliza LAMAR.
[2023-05-07] MEDS: sennosides 8.6mg tablet PO SCH (19:34)
[2023-05-07] MEDS: tamsulosin 0.4mg capsule PO SCH (19:35)
[2023-05-07 22:00] VITALS: BP 87/55
[2023-05-07 22:30] VITALS: BP 91/58
[2023-05-08] MEDS: HYDROcodone/acetaminophen 10/325mg tab PO PRN ×5 (02:28→20:43)
[2023-05-08 06:00] VITALS: BP 98/65
--- NOTE | 2023-05-08 06:46 | NUR ---
Patient in room ORTHO 4012. I have received report from January and had the opportunity to ask questions and assume patient care.
[2023-05-08] MEDS: furosemide 20MG tablet PO SCH ×2 (08:48→20:00)
[2023-05-08] MEDS: potassium chloride 10mEq ER tablet PO SCH ×2 (08:48→20:42)
[2023-05-08] MEDS: aspirin 81mg, enteric-coated 1 TAB TABLET.DR PO SCH (08:48)
[2023-05-08] MEDS: levetiracetam 250mg tablet PO SCH ×2 (08:48→20:43)
[2023-05-08 10:00] VITALS: BP 91/60
[2023-05-08 18:20] VITALS: BP 101/72
--- NOTE | 2023-05-08 18:24 | NUR ---
Problems reprioritized. Patient report given, questions answered & plan of care reviewed with
[2023-05-08] MEDS: tamsulosin 0.4mg capsule PO SCH (20:42)
[2023-05-08] MEDS: sennosides 8.6mg tablet PO SCH (20:42)
[2023-05-08 22:00] VITALS: BP 111/60
[2023-05-09] MEDS: HYDROcodone/acetaminophen 10/325mg tab PO PRN ×2 (02:44→08:08)
[2023-05-09 06:00] VITALS: BP 105/58
--- NOTE | 2023-05-09 06:15 | NUR ---
Patient in room ORTHO 4012. I have received report from Fiordaliza RN and had the opportunity to ask questions and assume patient care.
[2023-05-09] MEDS: levetiracetam 250mg tablet PO SCH (08:07)
[2023-05-09] MEDS: potassium chloride 10mEq ER tablet PO SCH (08:07)
[2023-05-09] MEDS: aspirin 81mg, enteric-coated 1 TAB TABLET.DR PO SCH (08:07)
[2023-05-09] MEDS: furosemide 20MG tablet PO SCH (08:08)
[2023-05-09 10:00] VITALS: BP 104/69
--- NOTE | 2023-05-09 12:00 | NUR ---
I have reviewed and agree with interventions, assessments, and documentation by Tamara Montero LVN.
[2023-05-09] MEDS ORDERED: LEVE500T PO (12:15)
--- NOTE | 2023-05-09 12:15 | NUR ---
Patient discharged to [facility]. Patient alert and appropriate for discharge. All discharge instructions were explained to patient and all questions were answered. Patient gathered all belongings and was wheeled downstairs. Patient was picked up by cab.
== END 2023-05-09 12:35 | disposition home or self-care (01) | DRG 322 ==
LOC: PAS IN 07:08 → ORTHO 4S 17:30
PROVIDERS: ADMIT Orthopaedic Surgery; ATTEND Orthopaedic Surgery
PROC: 3E0T3BZ Introduction of Anesthetic Agent into Peripheral Nerves and Plexi, Percutaneous Approach (ICD-10-PCS; 2023-04-18)
PROC: 3E0T33Z Introduction of Anti-inflammatory into Peripheral Nerves and Plexi, Percutaneous Approach (ICD-10-PCS; 2023-04-18)
PROC: 0RRK0JZ Replacement of Left Shoulder Joint with Synthetic Substitute, Open Approach (ICD-10-PCS; principal; 2023-04-18 12:27)
PROC: 0RPK0JZ Removal of Synthetic Substitute from Left Shoulder Joint, Open Approach (ICD-10-PCS; 2023-04-26)
PROC: 0RRK0JZ Replacement of Left Shoulder Joint with Synthetic Substitute, Open Approach (ICD-10-PCS; 2023-04-26)
PROC: 30233N1 Transfusion of Nonautologous Red Blood Cells into Peripheral Vein, Percutaneous Approach (ICD-10-PCS; 2023-04-27)
DX: T84.028A Dislocation of other internal joint prosthesis, initial encounter (principal); D61.818 Other pancytopenia; K74.60 Unspecified cirrhosis of liver; S42.292K Other displaced fracture of upper end of left humerus, subsequent encounter for fracture with nonunion; M19.012 Primary osteoarthritis, left shoulder; Y83.8 Other surgical procedures as the cause of abnormal reaction of the patient, or of later complication, without mention of misadventure at the time of the procedure; R56.9 Unspecified convulsions; Z96.612 Presence of left artificial shoulder joint; Y92.89 Other specified places as the place of occurrence of the external cause
CPT/HCPCS: 36415; 36430; 73030; 80047; 80051; 80053; 80177; 82948; 85007; 85025; 85610; 85730; 86885; 86900; 86901; 86920; 87081; 97110; 97116; 97161; 97164; 97530; A4565; A4615; A4618; A6212; A6258; A6449; A7000; C1776; G0378; J0690; J1100; J1885; J2175; J2250; J2370; J2405; J2704; J2795; J3010; J3370; J3480; J3490; J7030; J7040; J7120; P9016; P9045